=== PATIENT | female | born 1980 | race Two or more races ===

== ENCOUNTER 2024-03-05 09:34 | Emergency (ER) | payer MEDICAID, OTHER ==
[~2024-03-05] VITALS: Ht 162.6 cm; Wt 77.0 kg
[2024-03-05 09:53] VITALS: BP 148/98; PULSE 94; RESP 16; TEMP 98.7; O2SAT 97
[2024-03-05] MEDS ORDERED: NABU-72 PO (10:19)
== END 2024-03-05 10:21 | disposition home or self-care (01) ==
LOC: ER 09:34
DX: N64.4 Mastodynia (principal); Z79.899 Other long term (current) drug therapy

== ENCOUNTER 2025-10-12 15:57 | Emergency (ER) | payer MEDICAID ==
[~2025-10-12] VITALS: Ht 162.6 cm; Wt 75.8 kg
[~2025-10-12 15:57] MED LIST: NABU-72 PO
[2025-10-12] MEDS ORDERED: PSEU240T PO (16:26)
[2025-10-12] MEDS ORDERED: AUG875T PO (16:26)
[2025-10-12] MEDS ORDERED: IBUP1TAB5 PO (16:26)
[2025-10-12 16:30] VITALS: BP 141/83; PULSE 73; RESP 16; TEMP 98.7; O2SAT 98
--- NOTE | 2025-10-12 16:31 | ED.PDOC ---
HPI (NEURO) HPI Comments 45-year-old female who is Czech-speaking presents to the ER with a chief complaint of the headache. Patient reports on having had an atraumatic frontal and maxillary headache for the past week which has been worsening since yesterday associated with tooth pain and a sour metallic taste in the mouth. Patient notes that the pain is aggravated when leaning over but subsides when lying at rest. Denies any other symptoms at this time. Denies chills, fever, N/V/D, SOB, CP. No other associated symptoms, modifiers, recent injuries or sick contacts present at this time. Chief Complaint: Headache Time Seen by MD: 16:15 Reviewed Notes: Nurses Notes, Medications, Allergies Information Source: Patient Mode of Arrival: Ambulatory Severity: Moderate Headache Severity: Moderate Timing: Days Duration: Since onset, Days Prehospital treatment: None Headache Quality: Aching Headache Location: Frontal Onset: At rest Circumstances: Spontaneous Symptoms: None Before: Normal During: Awake After: Headache, Normal Mentation History of: None Associated Signs and Symptoms: None Past Medical History PAST MEDICAL HISTORY: Denies Surgical History: Denies all surgeries BOOK REVIEWER History: No Pertinent BOOK REVIEWER History Family History Family History: Reviewed,noncontributory to illness, Unknown Social History Smoker: Non-Smoker Alcohol: Denies ETOH Use Drugs: Denies Drug Use Lives In: Home Constitutional: denies: chills, diaphoresis, fatigue, fever, malaise, sweats, weakness, others EENTM: denies: blurred vision, double vision, ear bleeding, ear discharge, ear drainage, ear pain, ear ringing, eye pain, eye redness, hearing loss, mouth pain, mouth swelling, nasal discharge, nose bleeding, nose congestion, nose pain, photophobia, tearing, throat pain, throat swelling, voice changes, others Respiratory: denies: cough, hemoptysis, orthopnea, SOB at rest, shortness of breath, SOB with excertion, stridor, wheezing, others Cardiovascular: denies: chest pain, dizzy spells, diaphoresis, Dyspnea on exertion, edema, irregular heart beat, left arm pain, lightheadedness, palpitations, PND, syncope, others Gastrointestinal: denies: abdomen distended, abdominal pain, blood streaked bowels, constipated, diarrhea, dysphagia, difficulty swallowing, hematemesis, melena, nausea, poor appetite, poor fluid intake, rectal bleeding, rectal pain, vomiting, others Genitourinary: denies: abnormal vagina bleeding, burning, dyspareunia, dysuria, flank pain, frequency, hematuria, incontinence, pain, , vagina discharge, urgency, others Neurological: reports: headache; denies: dizziness, fainting, left sided numbness, left sided weakness, numbness, paresthesia, pre-existing deficit, right sided numbness, right sided weakness, seizure, speech problems, tingling, tremors, weakness, others Musculoskeletal: denies: back pain, gout, joint pain, joint swelling, muscle pain, muscle stiffness, neck pain, others Integumetry: denies: bruises, change in color, change in hair/nails, dryness, laceration, lesions, lumps, rash, wounds, others Allergic/Immunocompromised: denies: Difficulty Healing, Frequent Infections, Hives, Itching, others Hematologic/Lymphatic: denies: anemia, blood clots, easy bleeding, easy bruising, swollen glands, others Endocrine: denies: excessive hunger, excessive sweating, excessive thirst, excessive urination, flushing, intolerance to cold, intolerance to heat, unexplained weight gain, unexplained weight loss, others Psychiatric: denies: anxiety, bipolar disorder, depression, hopeless, panic disorder, schizophrenia, sleepless, suicidal, others All Other Systems: Reviewed and Negative Physical Exam Exam Comments frontal and maxillary palpation tenderness to palpation General Appearance: No Apparent Distress, Normal HEENT: Normal ENT Inspection, Pharynx Normal, TMs Normal Neck: Full Range of Motion, Non-Tender, Normal, Normal Inspection Respiratory: Chest Non-Tender, Lungs Clear, No Accessory Muscle Use, No Respiratory Distress, Normal Breath Sounds Cardiovascular: No Edema, No JVD, No Murmur, No Gallop, Normal Peripheral Pulses, Regular Rate/Rhythm Breast Exam: Deferred Gastrointestinal: No Organomegaly, Non Tender, No Pulsatile Mass, Normal Bowel Sounds, Soft Genitalia: Deferred Pelvic: Deferred Rectal: Deferred Extremities: No calf tenderness, Normal capillary refill, Normal inspection, Normal range of motion, Non-tender, No pedal edema Musculoskeletal : Apperance: Normal Neurologic: Alert, 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 Discussion with independent historian (EMS, family) history obtained from the patient/parents (if applicable) at bedside Chronic conditions affecting care: None Social determinants of health affecting care: None Consideration of admission (observation or admission): I considered escalation of care to admission for this patient, however given the reassuring workup, the patient is safe for outpatient management. Discussion with the Radiology: No Tests considered but not performed: Prescription medication considered but not given: 12 lead EKG interpretation: Time of 1ST Reevaluation: 16:45 Reevaluation 1ST: Unchanged Patient Education/Counseling: Diagnosis, Treatment, Prognosis Family Education/Counseling: No Family Present Departure 1 Departure Time of Disposition: 16:45 Impression: Primary Impression: Sinusitis Qualified Codes: J32.1 - Chronic frontal sinusitis Disposition: 01 HOME / SELF CARE / HOMELESS Condition: Stable e-Prescriptions Ibuprofen Micronized (Ibuprofen) 600 Mg Tab 600 MG PO Q8HP PRN for 7 Days, #21 TAB 0 Refills Prov: DO ROCHE NP 10/12/25 Pseudoephedrine (Sudafed 24 Hour) 240 Mg Tab 240 MG PO DAILY for 10 Days, #10 TAB 0 Refills Prov: DO ROCHE NP 10/12/25 Amoxicillin & Pot Clavulanate (AUGMENTIN TABLET) 875 Mg Tb 875 MG PO BID for 7 Days, #14 TAB 0 Refills Prov: DO ROCEH NP 10/12/25 Discharged With: Self Critical Care Note Critical Care Time?: No Stability Stability form required: No I personally scribed for DO ROCHE NP ([email or web address]) on 10/12/25 at 16:31. Electronically submitted by Sridhar Acevedo ([email or web address]). I personally scribed for DO ROCHE NP ([email or web address]) on 10/12/25 at 16:45. Electronically submitted by Sridhar Acevedo ([email or web address]). DO ROCHE NP Oct 12, 2025 16:31
== END 2025-10-12 16:49 | disposition home or self-care (01) ==
LOC: ER 15:57
DX: J01.90 Acute sinusitis, unspecified (principal); Z79.899 Other long term (current) drug therapy